=== PATIENT | female | born 1965 ===

== ENCOUNTER → 2018-04-14 | Outpatient (CLI) | payer OTHER ==
[~2018-04-14] MED LIST: ACHD5005 PO; INSU100V5 SQ; METF10002 PO; cholesterol med
--- NOTE | 2018-04-14 13:30 | Diagnostic Imaging Report ---
PROCEDURE: US Hepatic (Liver). TECHNIQUE: Multiple real-time grayscale images were obtained over the right upper quadrant in various projections. INDICATION: Elevated liver function tests. FINDINGS: There are no prior studies available for comparison. The liver does not appear to be enlarged. There is no focal mass involving the liver and the biliary tree is not abnormally dilated. There is no evidence for cholelithiasis or acute cholecystitis; however, the common bile duct is dilated measuring 7.6 mm (normal 6 mm or less). The reason for the dilatation of the common bile duct is not certain. There is no evidence for obstructive calculus, but the distal portion of the duct is not visualized. The pancreatic head is partially obscured by bowel gas and consequently the evaluation of the pancreas for a mass is limited. The right kidney is unremarkable. IMPRESSION: 1. The liver does not appear to be enlarged and there is no focal mass involving the liver. 2. There is no evidence for cholelithiasis or acute cholecystitis, but the common bile duct does seem to be dilated. If further imaging of the common bile duct is desired, then either CT of the abdomen and pelvis or preferably MRCP would be recommended. Dictated by: Dictated on workstation # [id number]
== END ==
LOC: RAD 08:30
PROVIDERS: ATTEND Family Medicine
DX: R79.89 Other specified abnormal findings of blood chemistry (principal)
CPT/HCPCS: 76705

== ENCOUNTER → 2018-06-18 | Outpatient (CLI) | payer OTHER ==
--- NOTE | 2018-06-18 12:03 | Diagnostic Imaging Report ---
Indication: Routine screening. No prior mammograms are available for comparison. 2-D and 3-D bilateral screening mammography was performed with CAD. Scattered fibroglandular densities are identified bilaterally. There is a focal density in the right breast CC view just lateral to the nipple line at mid depth. This most likely represents superimposed tissue but additional views are recommended. No definite correlate on the MLO view is seen. Left breast is unremarkable. Occasional benign calcifications are seen. No malignant-appearing microcalcifications are seen. The axillae are unremarkable. Impression: BI-RADS 0 Right breast density. Additional views including spot compression and roll CC views as well as 90 degree lateral view is recommended. Dictated by: Dictated on workstation # [id number]
== END ==
LOC: RAD 08:56
PROVIDERS: ATTEND Family Medicine
DX: Z12.31 Encounter for screening mammogram for malignant neoplasm of breast (principal)
CPT/HCPCS: 77067

== ENCOUNTER → 2018-07-15 | Outpatient (CLI) | payer OTHER ==
[~2018-07-15] MED LIST changes: +METF-399 PO; -METF10002 PO
--- NOTE | 2018-07-15 09:00 | Diagnostic Imaging Report ---
INDICATION: Right breast density. Patient presents for additional views. Correlation is made with screening study from 06/18/2018. Unilateral right 2-D and 3-D diagnostic mammography was performed including spot compression CC, rolled CC and 90 degree lateral views. Additional views fail to demonstrate a discrete mass. The area of density in the outer portion of the right breast approximately 5 cm from nipple demonstrates normal dispersion likely represents superimposed tissue. No suspicious calcifications are seen. Impression: BI-RADS zero Additional views fail to demonstrate a discrete mass. Even so, further evaluation of the outer right breast with ultrasound is recommended and will be performed today. ACR BI-RADS Category 0: Incomplete. (Needs additional imaging evaluation). Result letter will be mailed to the patient. Note: At least 10% of breast cancer is not imaged by mammography. Dictated by: Dictated on workstation # [id number]
--- NOTE | 2018-07-15 11:27 | Diagnostic Imaging Report ---
INDICATION: Right breast density. Sonographic interrogation of the outer right breast was performed. There is a 5 mm cyst at the 9 o'clock location of the right breast, 5 cm from the nipple, likely accounting for the mammographic density. Minimal internal complexity is seen. There is posterior acoustic enhancement. No internal vascularity is seen. IMPRESSION: BI-RADS 2 A 5 mm slightly complicated cyst at the 9 o'clock location of the right breast correlating with the mammographic density. The patient may return to routine annual screening mammography. ACR BI-RADS Category 2: Benign findings. Result letter will be mailed to the patient. Note: At least 10% of breast cancer is not imaged by mammography. Dictated by: Dictated on workstation # [id number]
== END ==
LOC: RAD 08:31
PROVIDERS: ATTEND Family Medicine
DX: N60.02 Solitary cyst of left breast (principal)

== ENCOUNTER 2018-12-26 19:44 | Emergency (ER) | payer OTHER ==
[~2018-12-26] VITALS: Ht 152.4 cm; Wt 79.4 kg
--- NOTE | 2018-12-26 23:44 | NUR ---
ASSUMED CARE OF PT @ THIS TIME. PT AMB TO ROOM #9 W/O DIFFICULTY. A&OX4. C/O UPPER RT QUADRANT ABD PAIN. REPORTS PAIN IS NOW DIFFUSE THROUGHOUT ABD WITH A BURNING SENSATION. PT REPORTS SHE WAS SEEN @ [facility] ON THIS DAY WHERE SHE WAS PRESCRIBED MYLANTA AND REFERRED TO THIS ED IF PAIN DID NOT SUBSIDE. PT REPORTS THROUGHOUT DAY PAIN HAS STEADILY INCREASED. REPORTS BLOATING AND NAUSEA.
[2018-12-27 00:26] LABS: BILIRUBIN,URINE NEGATIVE (NEGATIVE); CLARITY,URINE CLEAR; COLOR,URINE YELLOW; GLUCOSE, URINE (UA) 4+ (NEGATIVE); KETONES,URINE NEGATIVE (NEGATIVE); LEUKOCYTE ESTERASE ,URINE NEGATIVE (NEGATIVE); NITRITE,URINE NEGATIVE (NEGATIVE); PH,URINE 7 (5-9); PROTEIN,URINE NEGATIVE (NEGATIVE); UROBILINOGEN,URINE NORMAL (NORMAL)
[2018-12-27 00:33] LABS: BACTERIA,URINE NEGATIVE /HPF; SQUAMOUS EPITHELIAL CELL,UR RARE /HPF
[2018-12-27 00:42] LABS: BASOPHILS % (AUTO) 0 % (0-10); EOSINOPHILS # (AUTO) 0.2 10^3/uL (0.0-0.3); EOSINOPHILS % (AUTO) 3 % (0-10); HEMATOCRIT 41 % (35-52); HEMOGLOBIN 13.7 G/DL (11.5-16.0); LYMPHOCYTES # (AUTO) 3.2 X 10^3 (1.0-4.0); LYMPHOCYTES % (AUTO) 39 % (12-44); MEAN CORPUSCULAR HEMOGLOBIN 29 PG (25-34); MEAN CORPUSCULAR HGB CONC 33 G/DL (32-36); MEAN CORPUSCULAR VOLUME 87 FL (80-99); MEAN PLATELET VOLUME 9.7 FL (7.4-10.4); MONOCYTES # (AUTO) 0.5 X 10^3 (0.0-1.0); MONOCYTES % (AUTO) 6 % (0-12); NEUTROPHILS # (AUTO) 4.3 X 10^3 (1.8-7.8); NEUTROPHILS % (AUTO) 52 % (42-75); PLATELET COUNT 218 10^3/uL (130-400); WHITE BLOOD COUNT 8.2 10^3/uL (4.3-11.0)
[2018-12-27 00:57] LABS: ALANINE AMINOTRANSFERASE 42 U/L (0-55); ALBUMIN 4.1 GM/DL (3.2-4.5); ALKALINE PHOSPHATASE 118 U/L (40-136); AMYLASE 39 U/L (25-125); BILIRUBIN,TOTAL 0.5 MG/DL (0.1-1.0); BUN/CREATININE RATIO 21; CALCIUM 9.8 MG/DL (8.5-10.1); CARBON DIOXIDE 26 MMOL/L (21-32); CHLORIDE 102 MMOL/L (98-107); CREATININE SERUM 0.81 MG/DL (0.60-1.30); GFR ESTIMATED > 60; GLUCOSE 132 MG/DL (70-105); LIPASE 27 U/L (8-78); POTASSIUM 4.3 MMOL/L (3.6-5.0); SODIUM 138 MMOL/L (135-145); TOTAL PROTEIN 7.2 GM/DL (6.4-8.2)
[2018-12-27] MEDS ORDERED: ONDANSETRON 4 MG/2 ML (SDV) Z0FRAN ONE (01:02)
[2018-12-27] MEDS ORDERED: NS IV 1000 ML 1,000 ML ONE (01:02)
[2018-12-27] MEDS ORDERED: NS 100 ML (IVPB) BAG IV ONE (03:30)
[2018-12-27] MEDS ORDERED: RECEIVED CONTRAST (Hold Metformin) IV SCH (03:30)
[2018-12-27] MEDS ORDERED: IOHEXOL 350 MG/ML 100 ML (OMNIPAQUE 350) VIAL IV ONE (03:30)
[2018-12-27] MEDS ORDERED: METR500T PO (03:37)
[2018-12-27] MEDS ORDERED: CIPR-225 PO (03:37)
[2018-12-27] MEDS ORDERED: TRAM-42 PO (03:37)
--- NOTE | 2018-12-27 03:38 | ED Abdominal Pain ---
General Chief Complaint: Abdominal/GI Problems Stated Complaint: ABD PAIN Nursing Triage Note: PT ARRIVED POV WITH C/O OF ABDOMINAL PAIN IN THE RUQ THAT STARTED A WEEK AGO. THIS MORNING PT WAS SEEN AT [facility] GIVEN THE RX MYLANTA. THEY STATED IF IT WAS NOT HELPING TO GO TO THE ER FOR A SCAN. PT STATES "IT IS TOO MUCH PAIN" Sepsis Screen: No Definite Risk Source of Information: Patient, Family (EX DOES SOME INTERPRETATION) Exam Limitations: Language Barrier (PT SPEAKS FAIR SERBIAN) History of Present Illness Date Seen by Provider: Dec 27, 2018 Time Seen by Provider: 00:02 Initial Comments PT ARRIVES VIA POV FROM HOME C/O GENERALIZED ABDOMINAL PAIN, WORSE IN RUQ AND RADIATING TO RIGHT FLANK PAIN HAS BEEN ONGOING FOR OVER A WEEK, WORSE SINCE Thursday12/24/18 NOTHING WORSENS OR IMPROVES PAIN C/O ALOT OF ABDOMINAL BLOATING NO NAUSEA/VOMITING NO CONSTIPATION OR DIARRHEA NO FEVER C/O URINARY FREQUENCY NO HISTORY OF SIMILAR PT WENT TO [facility] EARLIER TODAY FOR THIS PROBLEM NO TESTS AND NO RX--WAS TOLD TO TAKE MYLANTA. PCP: [facility], DR. ESPINOZA Allergies and Home Medications Allergies Coded Allergies: No Known Drug Allergies (Unverified , 04/11/16) Home Medications Ciprofloxacin HCl 500 Mg Tablet, 500 MG PO BID Prescribed by: ARYA PETERSON on 12/27/18336 Hydrocodone Bit/Acetaminophen 1 Each Tablet, 1 EACH PO Q4H PRN for PAIN Prescribed by: JANNY LUGO on 04/11/162017 Insulin Determir 1,000 Units/10 Ml Soln, 30 UNITS SQ HS, (Reported) Metformin HCl 1,000 Mg Tablet, 1,000 MG PO BID, (Reported) Metronidazole 500 Mg Tablet, 500 MG PO QID Prescribed by: ARYA PETERSON on 12/27/18336 Tramadol HCl 50 Mg Tablet, 50 MG PO Q4H Prescribed by: ARYA PETERSON on 12/27/18336 Patient Home Medication List Home Medication List Reviewed: Yes Review of Systems Review of Systems Constitutional: no symptoms reported; No fever Respiratory: No Symptoms Reported Cardiovascular: No Symptoms Reported Gastrointestinal: See HPI, Abdominal Pain; Denies Constipated, Denies Diarrhea , Denies Nausea, Denies Vomiting Genitourinary: No Symptoms Reported Musculoskeletal: see HPI, back pain Skin: no symptoms reported Psychiatric/Neurological: No Symptoms Reported Endocrine: No Symptoms Reported Past Jjhumnw-Dxgfcl-Xlxmnh Hx Patient Social History Alcohol Use: Denies Use Recreational Drug Use: No Smoking Status: Never a Smoker 2nd Hand Smoke Exposure: No Recent Foreign Travel: No Contact w/Someone Who Travel: No Recent Infectious Disease Expo: No Recent Hopitalizations: No Seasonal Allergies Seasonal Allergies: No Past Medical History Surgeries: Yes (LEFT HAND; RIGHT SHOULDER; X 1 WITH BTL; LATER "REMOVAL OF 15 LB TUMOR" WITH HYST/BSO --NON-CANCEROUS, PER PT; ALSO HAD 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 ) Section, Hysterectomy, Oophorectomy, Orthopedic, Tubal Ligation Respiratory: No Cardiac: No Neurological: No Reproductive Disorders: No FACILITY SUPERVISOR History: Hysterectomy, Menopausal Genitourinary: No Gastrointestinal: No Musculoskeletal: No Endocrine: Yes Diabetes, Insulin dep Are Your Blood Sugars Over 250: No HEENT: No Cancer: No Psychosocial: No Integumentary: No Blood Disorders: No Family Medical History No Pertinent Family Hx Physical Exam Vital Signs Vital Signs - First Documented 12/26/18 20:52 Temp 98.2 Resp 18 B/P (MAP) 103/62 (76) Pulse Ox 98 O2 Delivery Room Air Capillary Refill : Less Than 3 Seconds Height/Weight/BMI Height: 5'0" Weight: 175lbs. oz. 79.696897ga; BMI Method:Stated General Appearance: WD/WN, no apparent distress Respiratory: normal breath sounds, no respiratory distress, no accessory muscle use Cardiovascular: regular rate, rhythm, no murmur Gastrointestinal: normal bowel sounds, soft, no organomegaly, no pulsatile mass ; No distended, No guarding, No rebound; tenderness (DIFFUSE TENDERNESS, MORE IN LLQ AND RUQ AND EPIGASTRIC AREA) Extremities: normal inspection Back: normal inspection Neurologic/Psychiatric: network internship II-XII nml as tested, no motor/sensory deficits, alert, normal mood/affect, oriented x 3 Skin: normal color, warm/dry; No rash Progress/Results/Core Measures Results/Orders Lab Results Laboratory Tests Test 12/26/18 23:50 12/26/18 23:55 12/27/18 00:23 Range/Units White Blood Count 8.2 4.3-11.0 10^3/uL Red Blood Count 4.75 4.35-5.85 10^6/uL Hemoglobin 13.7 11.5-16.0 G/DL Hematocrit 41 35-52 % Mean Corpuscular Volume 87 80-99 FL Mean Corpuscular Hemoglobin 29 25-34 PG Mean Corpuscular Hemoglobin Concent 33 32-36 G/DL Red Cell Distribution Width 13.0 10.0-14.5 % Platelet Count 218 130-400 10^3/uL Mean Platelet Volume 9.7 7.4-10.4 FL Neutrophils (%) (Auto) 52 42-75 % Lymphocytes (%) (Auto) 39 12-44 % Monocytes (%) (Auto) 6 0-12 % Eosinophils (%) (Auto) 3 0-10 % Basophils (%) (Auto) 0 0-10 % Neutrophils # (Auto) 4.3 1.8-7.8 X 10^3 Lymphocytes # (Auto) 3.2 1.0-4.0 X 10^3 Monocytes # (Auto) 0.5 0.0-1.0 X 10^3 Eosinophils # (Auto) 0.2 0.0-0.3 10^3/uL Basophils # (Auto) 0.0 0.0-0.1 10^3/uL Sodium Level 138 135-145 MMOL/L Potassium Level 4.3 3.6-5.0 MMOL/L Chloride Level 102 98-107 MMOL/L Carbon Dioxide Level 26 21-32 MMOL/L Anion Gap 10 5-14 MMOL/L Blood Urea Nitrogen 17 7-18 MG/DL Creatinine 0.81 0.60-1.30 MG/DL Estimat Glomerular Filtration Rate > 60 BUN/Creatinine Ratio 21 Glucose Level 132 H 70-105 MG/DL Calcium Level 9.8 8.5-10.1 MG/DL Corrected Calcium 9.7 8.5-10.1 MG/DL Total Bilirubin 0.5 0.1-1.0 MG/DL Aspartate Amino Transf (AST/SGOT) 24 5-34 U/L Alanine Aminotransferase (ALT/SGPT) 42 0-55 U/L Alkaline Phosphatase 118 40-136 U/L Total Protein 7.2 6.4-8.2 GM/DL Albumin 4.1 3.2-4.5 GM/DL Amylase Level 39 25-125 U/L Lipase 27 8-78 U/L Serum Test, Qualitative NEGATIVE NEGATIVE Glucometer 131 H 70-110 MG/DL Urine Color YELLOW Urine Clarity CLEAR Urine pH 7 5-9 Urine Specific [place] 1.005 L 1.016-1.022 Urine Protein NEGATIVE NEGATIVE Urine Glucose (UA) 4+ H NEGATIVE Urine Ketones NEGATIVE NEGATIVE Urine Nitrite NEGATIVE NEGATIVE Urine Bilirubin NEGATIVE NEGATIVE Urine Urobilinogen NORMAL NORMAL MG/DL Urine Leukocyte Esterase NEGATIVE NEGATIVE Urine RBC (Auto) NEGATIVE NEGATIVE Urine RBC NONE /HPF Urine WBC NONE /HPF Urine Squamous Epithelial Cells RARE /HPF Urine Crystals NONE /LPF Urine Bacteria NEGATIVE /HPF Urine Casts NONE /LPF Urine Mucus NEGATIVE /LPF Urine Culture Indicated NO My Orders Orders - ARYA PETERSON DO Ua Culture If Indicated (12/27/18 00:02) Comprehensive Metabolic Panel (12/27/18 00:35) Amylase (12/27/18 00:35) Lipase (12/27/18 00:35) Hcg,Qualitative Serum (12/27/18 00:35) Saline Lock/Iv-Start (12/27/18 00:35) Cbc With Automated Diff (12/27/18 00:35) Ondansetron Injection (Zofran Injectio (12/27/18 01:02) Ns Iv 1000 Ml (Sodium Chloride 0.9%) (12/27/18 01:02) Ct Abdomen/Pelvis W (12/27/18 02:26) Acute Abd Series (12/27/18 02:26) Iohexol Injection (Omnipaque 350 Mg/Ml 1 (12/27/18 03:30) Contrast Received (Contrast Received) (12/27/18 03:30) Ns (Ivpb) (Sodium Chloride 0.9% Ivpb Bag (12/27/18 03:30) Piperacillin/Tazobactam (Bulk) (Zosyn In (12/27/18 03:45) Ketorolac Injection (Toradol Injection) (12/27/18 03:45) Medications Given in ED Current Medications Medications Dose Ordered Sig/Huy Route Start Time Stop Time Status Last Admin Dose Admin Iohexol 100 ml ONCE ONCE IV 12/27/18 03:30 12/27/18 03:31 DC 12/27/18 03:31 100 ML Ondansetron HCl 4 mg STK-MED ONCE .ROUTE 12/27/18 01:02 12/27/18 01:07 DC 12/27/18 01:15 4 MG Sodium Chloride 100 ml ONCE ONCE IV 12/27/18 03:30 12/27/18 03:31 DC 12/27/18 03:31 80 ML Sodium Chloride 1,000 ml @ STK-MED ONCE .ROUTE 12/27/18 01:02 12/27/18 01:07 DC 12/27/18 01:15 0 MLS/HR Vital Signs/I&O 12/26/18 20:52 Temp 98.2 Resp 18 B/P (MAP) 103/62 (76) Pulse Ox 98 O2 Delivery Room Air Blood Pressure Mean: 76 Progress Progress Note : Progress Note PAIN EASED AT DISMISSAL Diagnostic Imaging Comments ACUTE ABDOMEN XRAYS--NO ACUTE PROCESS, PENDING RADIOLOGIST REVIEW CT ABDOMEN/PELVIS--SIGMOID DIVERTICULITIS, PER [facility] VIA FAX @ [id number] Reviewed: Reviewed by Me Departure Impression Primary Impression: Sigmoid diverticulitis Disposition: HOME, SELF-CARE Condition: Stable Departure-Patient Inst. Referrals: LILLY ESPINOZA MD (PCP/Family) Primary Care Physician ZULAY PLUMMER MD Patient Instructions: Diverticulitis (DC) Add. Discharge Instructions: CLEAR LIQUIDS--WATER, BROTH, JELLO, GATORADE NO FOOD UNTIL YOUR ARE RECHECKED AND CLEARED BY DR. GIACOMO CARDONA FOR 2 DA[address]LLOW UP WITH DR. PLUMMER IN 1-2 DAYS FOR FURTHER CARE RETURN TO ER IF WORSE All discharge instructions reviewed with patient and/or family. Voiced understanding. Scripts Tramadol HCl (Ultram) 50 Mg Tablet 50 MG PO Q4H, #20 TAB Prov: ARYA PETERSON DO 12/27/18 Metronidazole (Flagyl) 500 Mg Tablet 500 MG PO QID for FOR INFECTION, #40 TAB Prov: SUHAIL PETERSONA K DO 12/27/18 Ciprofloxacin HCl (Cipro) 500 Mg Tablet 500 MG PO BID, #20 TAB Prov: SUHAIL PETERSONA K DO 12/27/18 ARYA PETERSON DO Dec 27, 2018 03:38
[2018-12-27] MEDS ORDERED: PIPERACILLIN/TAZO 4.5 GM VIAL (ZOSYN) IV ONE (03:41)
[2018-12-27] MEDS ORDERED: KETOROLAC 30 MG/ML VIAL IVP ONE (03:45)
[2018-12-27] MEDS ORDERED: PIPERACILLIN/TAZOBACTAM (BULK) 4.5 GM in NS (IVPB) 100 ML IV ONE (03:45)
[2018-12-27 04:48] VITALS: BP 109/59
--- NOTE | 2018-12-27 05:27 | Diagnostic Imaging Report ---
INDICATION: Right upper quadrant abdominal pain COMPARISON: None FINDINGS: Supine and upright views of the abdomen show a nondistended bowel gas pattern. No abnormal air fluid levels or free intraperitoneal air is seen. No abnormal extraosseous calcifications are seen. Bony and soft tissue structures are within normal limits. No organomegaly is identified. Accompanying upright chest shows normal heart size and pulmonary vascularity. The lungs are well aerated and clear. The mediastinum is normal in appearance. IMPRESSION: 1. No bowel obstruction or free air. 2. Normal chest. No pneumonia or pulmonary edema. Dictated by: Dictated on workstation # [id number]
--- NOTE | 2018-12-27 06:46 | Diagnostic Imaging Report ---
PROCEDURE: CT abdomen and pelvis with contrast. TECHNIQUE: Multiple contiguous axial images were obtained through the abdomen and pelvis after administration of intravenous contrast. INDICATION: Right upper quadrant abdominal pain. COMPARISON: None. FINDINGS: Included portions of the lung bases are clear. CT abdomen: There is colonic diverticulosis. Additionally, there is abnormal mild stranding of the pericolonic fat involving the sigmoid colon (image 67, series 3). There is also mild wall thickening involving this portion of the colon. There is no pneumatosis, pneumoperitoneum, nor portal venous gas. No free fluid or loculated air-fluid collection is seen within the abdomen or pelvis. Small bowel loops are nondistended. Normal appendix is identified. The kidneys, adrenal glands, spleen, pancreas, and liver have a normal CT appearance. No abnormal mesenteric or retroperitoneal adenopathy is seen within the abdomen. Bony structures show no acute abnormalities. CT pelvis: Urinary bladder is grossly unremarkable. There is no loculated fluid collection, free fluid or free air within the pelvis. No abnormal lymph nodes are seen. Bony structures show no acute abnormalities. IMPRESSION: 1. Colonic diverticulosis with probable acute diverticulitis of the sigmoid colon. Please note, colonic malignancy may present in a similar manner. Correlation with colonoscopy is recommended when clinically appropriate. 2. No pneumatosis, pneumoperitoneum, portal venous gas, nor loculated air-fluid collection within the abdomen or pelvis. Dictated by: Dictated on workstation # [id number]
== END 2018-12-27 04:48 | disposition home or self-care (01) ==
LOC: EDUNIT# 19:44 → ER 19:46
DX: K57.32 Diverticulitis of large intestine without perforation or abscess without bleeding (principal); E11.9 Type 2 diabetes mellitus without complications; Z90.710 Acquired absence of both cervix and uterus; Z79.4 Long term (current) use of insulin; Z98.51 Tubal ligation status; Z86.018 Personal history of other benign neoplasm
CPT/HCPCS: 36415; 74022; 74177; 80053; 81000; 82150; 82962; 83690; 84703; 85025

== ENCOUNTER → 2019-01-31 | Outpatient (CLI) | payer OTHER ==
[~2019-01-31] MED LIST changes: +CIPR-225 PO; +Invokana; +METR500T PO; +TRAM-42 PO
== END | disposition home or self-care (01) ==
LOC: PREOP 06:05
PROVIDERS: ATTEND Surgery
DX: Z01.818 Encounter for other preprocedural examination (principal)

== ENCOUNTER 2019-02-07 07:14 | Day surgery (SDC) | payer OTHER ==
[~2019-02-07] VITALS: Ht 152.4 cm; Wt 79.4 kg
[~2019-02-07 07:14] MED LIST changes: -Invokana
[2019-02-07] MEDS ORDERED: LACTATED RINGERS 1,000 ML IV ONE (07:37)
[2019-02-07] MEDS ORDERED: Invokana (08:07)
[2019-02-07] MEDS ORDERED: LACTATED RINGERS 1,000 ML IV STA (08:10)
[2019-02-07 08:15] VITALS: BP 119/75
--- NOTE | 2019-02-07 08:21 | Progress Note-Pre Operative ---
Pre-Operative Progress Note H&P Reviewed The H&P was reviewed, patient examined and no changes noted. Time Seen by Provider: 08:13 Date H&P Reviewed: Feb 07, 2019 Time H&P Reviewed: 08:14 Pre-Operative Diagnosis: LLQ pain, Hx of Diverticulitis MAYRA MONTANEZ DO Feb 07, 2019 08:21
[2019-02-07] MEDS ORDERED: LIDOCAINE PF 2% 5 ML (XYLOCAINE) VIAL ONE (08:40)
[2019-02-07] MEDS ORDERED: MIDAZOLAM 2 MG/2 ML (VERSED) VIAL ONE (08:40)
[2019-02-07] MEDS ORDERED: PROPOFOL INJECTION 50 ML IV ONE (08:40)
--- NOTE | 2019-02-07 09:30 | Progress Note-Post Operative ---
Post-Operative Progess Note Surgeon (s)/Film Producer (s) Surgeon MAYRA MONTANEZ DO Film Producer: none Pre-Operative Diagnosis LLQ pain, Hx of Diverticulitis Post-Operative Diagnosis Polyp Diverticula Internal Hemorrhoids Procedure & Operative Findings Date of Procedure 02/07/19 Procedure Performed/Findings Colon with cold bx Anesthesia Type IV sedation by GIN CLERK Estimated Blood Loss Estimated blood loss (mL): scant Specimens/Packing Specimens Removed Asc colon polyp MAYRA MONTANEZ DO Feb 07, 2019 09:30
--- NOTE | 2019-02-07 09:31 | Endoscopy Discharge Instruct ---
Endo Procedure/Findings Findings 1.: Polyp 2.: Diverticulosis 3.: Internal Hemorrhoids Discharge Instructions - Activity: You might feel a little sleepy until tomorrow. This is due to the medicine you received to relax you. Until tomorrow, you should: NOT drive a car, operate machinery or power tools. NOT drink any alcoholic beverages. NOT make any important decisions or sign importortant papers. Do not return to work until tomorrow, unless otherwise instructed. Resume previous activities tomorrow. Diet: Start by taking liquids. If you tolerate liquids, advance to solid food. make an appointment for one week Instructions: 1.: Colonscopy in 10 years Notify Physician - If you experience excessive bleeding, unusual abdominal pain, fever, or chest pain, contact your doctor immediately. Follow-Up: - I have received and understand the above instructions and will call my doctor if I have any further questions. Patient Signature Date Nurse Signature Other (Relationship) MAYRA MONTANEZ DO Feb 07, 2019 09:31
[2019-02-07 09:40] VITALS: BP 113/57
[2019-02-07 10:10] VITALS: BP 115/76
[2019-02-07 10:15] VITALS: BP 115/76
--- NOTE | 2019-02-07 14:33 | Anesthesia-General Post-Op ---
MAC Patient Condition Mental Status/LOC: Same as Preop Cardiovascular: Satisfactory Nausea/Vomiting: Absent Respiratory: Satisfactory Pain: Controlled Complications: Absent Post Op Complications Complications None Follow Up Care/Instructions Patient Instructions None needed. Anesthesiology Discharge Order Discharge Order Patient is doing well, no complaints, stable vital signs, no apparent adverse anesthesia problems. No complications reported per nursing. STEPHEN JENSEN CRNA Feb 07, 2019 14:33
--- NOTE | 2019-02-08 05:15 | OPERATIVE REPORT ---
DATE OF SERVICE: 02/07/2019 PREOPERATIVE DIAGNOSES: 1. Left lower quadrant pain. 2. History of diverticulitis. 3. Bloating. POSTOPERATIVE DIAGNOSES: 1. Colon polyp. 2. Diverticula. 3. Internal hemorrhoids. PROCEDURE: Colonoscopy with cold biopsy. SURGEON: Elvin Jefferson DO. CREW LEADER: None. ANESTHESIA: IV sedation by RESIDENTIAL TREATMENT COUNSELOR. SPECIMEN: Polyp biopsy from the colon. BLOOD LOSS: Scant. FLUIDS: Per anesthesia. POSTOPERATIVE CONDITION: Stable. INDICATION FOR PROCEDURE: The patient is a 53-year-old female who has been having some increasing bloating and the left lower quadrant pain with history of diverticula and diverticulitis needed a colonoscopy. FINDINGS: The patient had large diverticula. She had one small polyp, biopsy performed and then had some minimal internal hemorrhoids. No other obvious pathology. PROCEDURE NOTE: After informed consent was obtained, the patient was brought to the endoscopy suite, placed in the bed in left lateral decubitus position. She was administered IV sedation by the RESIDENTIAL TREATMENT COUNSELOR, who then monitored her vitals the entire time, heart rate, blood pressure and pulse ox, and the scope was inserted, pushed all the way to [address] and noted diverticula, took a picture of this and then noted a polyp. Elected to do a cold biopsy of this polyp and then able to get all the way to cecum, took a picture of appendiceal orifice, noted the ileocecal valve and slowly withdrew the scope insufflating to look circumferentially at the goins, looking at the cecum up the ascending colon to the hepatic flexure, then down the transverse colon, splenic flexure, into the descending colon and into the sigmoid and finally rectum. Most of the large diverticula was seen throughout the sigmoid colon. Then, once in the rectal vault, retroflexed, saw some internal hemorrhoids, took a picture of this and then removed the scope. The patient tolerated the procedure and she was recovered in the endoscopy suite. Job ID: [id number] DocumentID: [id number] Dictated Date: 02/07/2019 18:33:13 Technology Administrator Date: 02/08/2019 05:14:17 Dictated By: ELVIN JEFFERSON DO
== END 2019-02-07 10:16 | disposition home or self-care (01) ==
LOC: ENDO 07:14
PROVIDERS: ATTEND Surgery
DX: K63.89 Other specified diseases of intestine (principal); K57.30 Diverticulosis of large intestine without perforation or abscess without bleeding; K64.8 Other hemorrhoids; Z87.19 Personal history of other diseases of the digestive system; I10 Essential (primary) hypertension; E78.5 Hyperlipidemia, unspecified; E11.9 Type 2 diabetes mellitus without complications; F32.9 Major depressive disorder, single episode, unspecified; F41.9 Anxiety disorder, unspecified; Z79.4 Long term (current) use of insulin
CPT/HCPCS: 82962

== ENCOUNTER → 2019-03-07 | Outpatient (CLI) | payer OTHER ==
[~2019-03-07] MED LIST changes: +Invokana
--- NOTE | 2019-03-07 08:23 | Diagnostic Imaging Report ---
INDICATION: EPIGASTRIC ABD TENDERNESS. COMPARISON: CT from 12/27/2018. TECHNIQUE: Grayscale and Doppler ultrasound performed in the right upper quadrant of the abdomen to evaluate the liver and gallbladder. FINDINGS: The liver is normal in size and shape. The liver echogenicity is mildly increased. There are no focal lesions. No intrahepatic biliary dilatation is present. The common bile duct is not dilated and measures 5 mm. The main portal vein is hepatopedal. There is no evidence of cholelithiasis, gallbladder wall thickening or pericholecystic fluid. Sonographic Morales's sign is negative. The visualized portion of the head of the pancreas are within normal limits. The body and tail of the pancreas are not well visualized due to overlying bowel gas. The right kidney measures approximately 10.1 cm in length and has a normal appearance. IMPRESSION: 1. No cholelithiasis or acute cholecystitis. 2. Mild fatty infiltration of the liver. Dictated by: Dictated on workstation # [id number]
== END ==
LOC: RAD 06:52
PROVIDERS: ATTEND Surgery
DX: K76.0 Fatty (change of) liver, not elsewhere classified (principal)
CPT/HCPCS: 76705

== ENCOUNTER 2019-03-10 10:45 | Outpatient (CLI) | payer OTHER ==
[~2019-03-10] VITALS: Ht 152.4 cm; Wt 79.4 kg
[2019-03-10] MEDS ORDERED: FLUO20CA25 PO (11:05)
[2019-03-10] MEDS ORDERED: ROSU10TA27 PO (11:05)
[2019-03-10] MEDS ORDERED: DULA1.5P2 SQ (11:05)
[2019-03-10] MEDS ORDERED: CANA100T PO (11:05)
[2019-03-10] MEDS ORDERED: INSU100I29 SQ (11:05)
[2019-03-10] MEDS ORDERED: LISI-556 PO (11:06)
== END 2019-03-10 11:08 | disposition home or self-care (01) ==
LOC: PREOP 10:45
PROVIDERS: ATTEND Surgery
DX: Z01.818 Encounter for other preprocedural examination (principal)

== ENCOUNTER 2019-03-14 07:04 | Day surgery (SDC) | payer OTHER ==
[~2019-03-14 07:04] MED LIST changes: +CANA100T PO; +DULA1.5P2 SQ; +FLUO20CA25 PO; +INSU100I29 SQ; +LISI-556 PO; +ROSU10TA27 PO
[2019-03-14] MEDS ORDERED: LACTATED RINGERS 1,000 ML IV ONE (07:18)
[2019-03-14] MEDS ORDERED: HURRICAINE EXT TUBE (BENZOCAINE) XX PRN (08:00)
[2019-03-14] MEDS ORDERED: LACTATED RINGERS 1,000 ML IV STA (08:00)
[2019-03-14 08:03] VITALS: BP 114/66
--- NOTE | 2019-03-14 08:58 | Progress Note-Pre Operative ---
Pre-Operative Progress Note H&P Reviewed The H&P was reviewed, patient examined and no changes noted. Time Seen by Provider: 08:56 Date H&P Reviewed: March 14, 2019 Time H&P Reviewed: 08:55 Pre-Operative Diagnosis: RUQ pain, Gastritis MAYRA MONTANEZ DO March 14, 2019 08:58
[2019-03-14] MEDS ORDERED: proPOfol 200 MG/20 ML (DIPRIVAN) VIAL IV ONE (09:21)
[2019-03-14] MEDS ORDERED: MIDAZOLAM 2 MG/2 ML (VERSED) VIAL ONE (09:22)
--- NOTE | 2019-03-14 09:39 | Progress Note-Post Operative ---
Post-Operative Progess Note Surgeon (s)/Business Education Instructor (s) Surgeon MAYRA MONTANEZ DO Business Education Instructor: none Pre-Operative Diagnosis RUQ pain, Gastritis Post-Operative Diagnosis Gastritis Hiatal Hernia Esophagitis Procedure & Operative Findings Date of Procedure 03/14/19 Procedure Performed/Findings EGD with bx Anesthesia Type IV sedation by ASSURANCE SENIOR MANAGER INSURANCE Estimated Blood Loss Estimated blood loss (mL): scant Specimens/Packing Specimens Removed Antral bx Body of stomach bx GE jxn bx x 2 MAYRA MONTANEZ DO March 14, 2019 09:39
[2019-03-14] MEDS ORDERED: HURRICAINE EXT TUBE (BENZOCAINE) ONE (09:41)
--- NOTE | 2019-03-14 09:41 | Endoscopy Discharge Instruct ---
Endo Procedure/Findings Findings 1.: Gastritis 2.: Hiatal Hernia Discharge Instructions - Activity: You might feel a little sleepy until tomorrow. This is due to the medicine you received to relax you. Until tomorrow, you should: NOT drive a car, operate machinery or power tools. NOT drink any alcoholic beverages. NOT make any important decisions or sign importortant papers. Do not return to work until tomorrow, unless otherwise instructed. Resume previous activities tomorrow. Diet: Start by taking liquids. If you tolerate liquids, advance to solid food. make an appointment for one week Instructions: 1.: EGD in 1 year Notify Physician - If you experience excessive bleeding, unusual abdominal pain, fever, or chest pain, contact your doctor immediately. Follow-Up: - I have received and understand the above instructions and will call my doctor if I have any further questions. Patient Signature Date Nurse Signature Other (Relationship) MAYRA MONTANEZ DO March 14, 2019 09:40
[2019-03-14 09:55] VITALS: BP 140/72
[2019-03-14 10:25] VITALS: BP 129/73
--- NOTE | 2019-03-14 12:08 | Anesthesia-General Post-Op ---
MAC Patient Condition Mental Status/LOC: Same as Preop Cardiovascular: Satisfactory Nausea/Vomiting: Absent Respiratory: Satisfactory Pain: Controlled Complications: Absent Post Op Complications Complications None Follow Up Care/Instructions Patient Instructions None needed. Anesthesiology Discharge Order Discharge Order Patient is doing well, no complaints, stable vital signs, no apparent adverse anesthesia problems. No complications reported per nursing. DEBORA CALHOUN CRNA March 14, 2019 12:08
[2019-03-14 12:10] VITALS: BP 129/73
--- NOTE | 2019-03-14 15:58 | OPERATIVE REPORT ---
DATE OF SERVICE: 03/14/2019 PREOPERATIVE DIAGNOSES: 1. Right upper quadrant pain. 2. Gastritis symptoms. POSTOPERATIVE DIAGNOSES: 1. Gastritis. 2. Hiatal hernia. 3. Esophagitis. PROCEDURE: EGD with biopsy. SURGEON: Elvin Jefferson DO SURVEY MANAGER: None. ANESTHESIA: IV sedation by the VENEER PRESS OPERATOR. SPECIMEN: One biopsy from the antrum, one biopsy of the body of stomach and two biopsies from the GE junction. BLOOD LOSS: Scant. FLUIDS: Per anesthesia. POSTOPERATIVE CONDITION: Stable. INDICATION FOR PROCEDURE: The patient is a 53-year-old female, who has been having a right upper quadrant pain with gastritis type symptoms, possible gallbladder, needed a workup for this. FINDINGS: The patient had some what looked like gastritis as well as some esophagitis and a small hiatal hernia. PROCEDURE NOTE: After informed consent was obtained, the patient was brought to the endoscopy suite, placed in the left lateral decubitus position. She was administered IV sedation by the VENEER PRESS OPERATOR, who then monitored her vitals the entire time, heart rate, blood pressure and pulse ox and the scope was inserted down the mouth through the esophagus into the stomach, pushed towards the antrum, saw a little bit of erythema, looked like gastritis, took a picture of this and then pushed into the duodenum. Duodenum looked fine, the first and second portion, pulled back into the antrum and took a biopsy of the antrum and retroflexed the scope, saw some more erythema in the body of stomach, so elected to do a biopsy of the body of the stomach and then with retroflexing, saw what looked like small hiatal hernia, pulled back into the GE junction and then did a biopsy of the GE junction. Two biopsies were actually performed and then pulled the scope up the esophagus and out the mouth. The patient tolerated the procedure. She was then recovered in the endoscopy suite. Job ID: [id number] DocumentID: [id number] Dictated Date: 03/14/2019 09:38:39 [employer] Date: 03/14/2019 15:58:00 Dictated By: ELVIN JEFFERSON DO
== END 2019-03-14 10:30 | disposition home or self-care (01) ==
LOC: ENDO 07:04
PROVIDERS: ATTEND Surgery
DX: K29.50 Unspecified chronic gastritis without bleeding (principal); B96.81 Helicobacter pylori [H. pylori] as the cause of diseases classified elsewhere; K44.9 Diaphragmatic hernia without obstruction or gangrene; K20.9 Esophagitis, unspecified; K57.30 Diverticulosis of large intestine without perforation or abscess without bleeding; K64.0 First degree hemorrhoids; I10 Essential (primary) hypertension; E78.5 Hyperlipidemia, unspecified; E11.9 Type 2 diabetes mellitus without complications; F32.9 Major depressive disorder, single episode, unspecified; F41.9 Anxiety disorder, unspecified; M19.91 Primary osteoarthritis, unspecified site; E66.9 Obesity, unspecified; Z79.899 Other long term (current) drug therapy; Z79.4 Long term (current) use of insulin; Z68.33 Body mass index [BMI] 33.0-33.9, adult
CPT/HCPCS: 82962

== ENCOUNTER 2021-11-25 09:16 | Outpatient (CLI) | payer SELFPAY ==
[~2021-11-25] VITALS: Ht 60 cm; Wt 77.3 kg
[~2021-11-25 09:16] MED LIST changes: -FLUO20CA25 PO; +FLUO20CA48 PO; -LISI-556 PO; +LISI5TAB20 PO; -ROSU10TA27 PO; +ROSU10TA28 PO
[2021-11-25 09:25] VITALS: BP 113/75
[2021-11-25 09:27] VITALS: BP 113/75
[2021-11-25] MEDS ORDERED: diphenhydrAMINE 50 MG/ML INJ (BENADRYL) IV PRN (09:30)
[2021-11-25] MEDS ORDERED: ONDANSETRON 4 MG/2 ML (SDV) Z0FRAN IV PRN (09:30)
[2021-11-25] MEDS ORDERED: EPINEPHrine INJECTION 1 MG/ML AMP IM PRN (09:30)
[2021-11-25] MEDS ORDERED: ACETAMINOPHEN 500 MG TAB (TYLENOL) PO PRN (09:30)
[2021-11-25] MEDS ORDERED: CASIRIVIMAB/IMDEVIMAB 1,200 MG in NS (IVPB) 250 ML IV ONE (09:30)
[2021-11-25 09:52] VITALS: BP 113/75
== END 2021-11-25 11:23 ==
LOC: INFUSION 09:16
PROVIDERS: ATTEND Nurse Practitioner Family
DX: U07.1 COVID-19 (principal); E11.9 Type 2 diabetes mellitus without complications

== ENCOUNTER → 2022-02-17 | Outpatient (CLI) | payer BC ==
--- NOTE | 2022-02-17 13:30 | Diagnostic Imaging Report ---
INDICATION: 56-year-old female, leg heaviness. History of diabetes, lower extremity claudication, hyperlipidemia. TECHNIQUE: Segmental pulse pressures were performed of the upper and lower extremities. FINDINGS: Resting Doppler Blood Pressures RIGHT Brachial: 125 mmHg Ankle (Posterior Tibial): 145 mm Hg Index: 1.16 Ankle (Dorsalis Pedis): 135 mm Hg Index: 1.08 LEFT Brachial: 118 mmHg Ankle (Posterior Tibial): 141 mm Hg Index: 1.13 Ankle (Dorsalis Pedis): 134 mm Hg Index: 1.07 IMPRESSION: Normal, ankle-brachial indices as above. Dictated by: Dictated on workstation # [id number]
== END ==
LOC: RAD 09:00
PROVIDERS: ATTEND Family Medicine
DX: I73.9 Peripheral vascular disease, unspecified (principal); E11.9 Type 2 diabetes mellitus without complications; E78.5 Hyperlipidemia, unspecified
CPT/HCPCS: 93922